=== PATIENT | female | born 1970 | race Caucasian/White ===

== ENCOUNTER 2024-03-22 07:24 | Emergency (ER) | payer OTHER, SELFPAY ==
--- NOTE | ~2024-03-22 | CT_ITS ---
EXAMINATION: CT ANGIOGRAM NECK CT ANGIOGRAM BRAIN CLINICAL INFORMATION: Acute onset dizziness. Neck pain. COMPARISON: None available. TECHNIQUE: Contiguous axial images from the thoracic inlet/aortic arch to the vertex bony calvarium, using 0.6 mm and 3 mm collimation following the IV contrast administration during the arterial phase. Total of 70 cc Omnipaque 350 contrast without reported complications. Sagittal and coronal reformatted images acquired. MIPS images The degree of stenosis determined by NASCET criteria. This CT examination was performed using dose optimization techniques as appropriate, variously including the following: *Automated exposure control *Adjustment of mA and/or kV according to patient size (this includes techniques or standardized protocols for targeted exams where dose is matched to indication/reason for exam; i.e. extremities or head) *Use of iterative reconstruction technique DLP: 1388 mGy-cm FINDINGS: CT angiogram neck: Aortic arch: Calcified plaques. No focal stenosis. No intimal flap. Right CCA: Tortuosity. No focal stenosis. No intimal flap. Right ICA: No focal stenosis. No intimal flap. Left CCA: No focal stenosis. No intimal flap. Left ICA: No focal stenosis. No intimal flap. Vertebral arteries: Left vertebral artery is dominant. Normal patency. No focal stenosis or intimal flap. CT angiogram brain: Anterior circulation: ICA: No focal stenosis. No intimal flap. Normal patency, bilaterally. MCA: No focal stenosis. No abrupt cut off. Normal patency, bilaterally. CONRADO: No focal stenosis. Note of contrast. Normal patency bilaterally. Ophthalmic arteries are patent. Posterior communicating arteries are patent, bilaterally. Left is robust. Posterior cerebral circulation: Right V4 segment with small caliber. Left vertebral artery is dominant. Posterior inferior cerebellar arteries, anterior inferior cerebellar arteries are patent. Basilar artery is patent without focal stenosis or intimal flap. Superior cerebellar arteries are patent. 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 Ancillary findings: Polyploid mucosal thickening, paranasal sinuses. CT/CT angio head neck IMPRESSION: No main cerebral artery occlusion or embolus. No gross aneurysm. Electronically signed by: Ferdinand Jay MD 03/22/2024 11:15 AM EDT
--- NOTE | ~2024-03-22 | CT_ITS ---
EXAMINATION: CT HEAD WITHOUT CONTRAST CLINICAL INFORMATION: dizziness, L ear pain, recent infection COMPARISON: None available. TECHNIQUE: Contiguous axial imaging was performed from the skull base to vertex without intravenous administration of contrast. This CT examination was performed using dose optimization techniques as appropriate, variously including the following: *Automated exposure control *Adjustment of mA and/or kV according to patient size (this includes techniques or standardized protocols for targeted exams where dose is matched to indication/reason for exam; i.e. extremities or head) *Use of iterative reconstruction technique DLP: 615 mGy-cm FINDINGS: No acute intracranial hemorrhage, mass effect, midline shift, hydrocephalus or herniation. Wray-white matter differentiation is normal. Posterior cranial fossa contents demonstrated no acute intracranial hemorrhage or mass effect. Few scattered patchy hypodensities in the deep periventricular white matter. Sellar/suprasellar region demonstrated no gross masses. Craniocervical junction is intact. Tympanic cavities and mastoid air cells are aerated. Polypoid mucosal thickening, left maxillary sinus. Increased density, left vertebral vascular system. CT/CT head/brain wo IV con IMPRESSION: No acute intracranial hemorrhage. Acute stroke/nonhemorrhagic ischemia cannot be excluded. If patient's symptoms persist recommend noncontrast MRI brain. Electronically signed by: Ferdinand Jay MD 03/22/2024 09:08 AM EDT
--- NOTE | ~2024-03-22 | XR_ITS ---
EXAMINATION: XR CHEST CLINICAL INFORMATION: Cough COMPARISON: None available. TECHNIQUE: Frontal view of the chest was obtained. FINDINGS: The lungs are adequately expanded. No focal consolidation. No pleural effusions or pneumothorax. The cardiomediastinal silhouette is within normal limits. No acute osseous abnormality. XR/XR chest 1V IMPRESSION: No acute pulmonary disease. Electronically signed by: Rohit Marcelino MD 03/22/2024 10:14 AM EDT
[2024-03-22 07:25] VITALS: BP 151/92; BP 184/100; PULSE 104; PULSE 79; RESP 18; TEMP 37.1; O2SAT 97; O2SAT 99; BMI 29.8
--- NOTE | 2024-03-22 07:26 | ECG_ITS ---
Test Reason : abd pain/vomiting Blood Pressure : / mmHG Vent. Rate : 086 BPM Atrial Rate : 086 BPM P-R Int : 134 ms QRS Dur : 066 ms QT Int : 386 ms P-R-T Axes : 049 023 044 degrees QTc Int : 461 ms Normal sinus rhythm Low voltage QRS Borderline ECG No previous ECGs available Referred By: Chloe Christian Electronically Signed By:Olaf Lomas
--- NOTE | 2024-03-22 07:27 | ED_ITS ---
HPI - Nausea/Vomiting/Diarrhea General Chief complaint: Nausea/Vomiting/Diarrhea Stated complaint: SUDDEN OSET N/V @ 5AM,HIGH BP 184/100 PER EMS Source: patient, EMS and old records reviewed Mode of arrival: EMS Limitations: no limitations History of Present Illness ED Provider: GILDA HPI Narrative: 53 yo female with PMH of bipolar, hearing loss and alcohol use disorder here with c/o waking up from sleep with the room spinning, n/v and her L face felt numb abruptly starting at 5am. She has been on amoxicillin since 03/15 for a L ear infection as well as cough she has been on amoxicillin she has a known L TM rupture. She denies drainage. She did wake up to use the bathroom at 1am and was fine but she woke up from sleep ill at 5am. Last known well was 1am. She denies abdominal pain, chest pain, dyspnea, diarrhea. She states she does not feel better. Her L face is tingling but she can feel it to the touch. MD elicited complaint: nausea and vomiting Onset (ago): hour(s) (5am today) Description of vomiting: watery Associated nausea: Yes Associated abdominal pain: No Location of pain: other (L ear area) Pain consistency: constant Severity: moderate Quality: aching Exacerbating factors: vomiting, movement and other (coughing) Relieving factors: none Context: other (recent AOM with TM rupture) Associated symptoms: loss of appetite, malaise, nausea/vomiting, weakness and other (dizziness, L facial tingling) Related Data Home Medications ?Medication ?Instructions ?Recorded ?Confirmed lamotrigine 200 mg tablet 200 mg PO DAILY 06/15/22 06/15/22 quetiapine 50 mg tablet (Seroquel) 50 mg PO BEDTIME 06/15/22 06/15/22 Previous Rx's ?Medication ?Instructions ?Recorded chlordiazepoxide HCl 25 mg capsule 25 mg PO Q2H PRN anxiety 12 doses 03/22/24 #12 caps ondansetron 4 mg disintegrating 4 mg PO Q8H PRN nausea and 03/22/24 tablet vomiting #20 tabs Allergies Allergy/AdvReac Type Severity Reaction Status Date / Time naproxen Allergy Unknown unknown Verified 03/22/24 07:35 pineapple Allergy Unknown Unknown Verified 06/15/22 09:26 zoloft Allergy Unknown hives Uncoded 06/15/22 09:26 Review of Systems 2 Review of Systems: Constitutional : No Fever, No Chills, No Fatigue ENT/Mouth : No sore throat, No Rhinorrhea, pos ear pain Eyes: No Eye Pain, No Swelling, No Redness Cardiovascular : No Chest Pain, No SOB, No Dyspnea on Exertion Respiratory : No Cough, No Sputum Gastrointestinal : pos Nausea, pos Vomiting, No Diarrhea, No abdominal Pain Genitourinary : No Dysuria, No Urinary Frequency, No Hematuria, Musculoskeletal : No joint pain, No Myalgias, No Joint Swelling Skin : No Skin Lesions, No rash Neuro : No Weakness, No Numbness, pos Dizziness, positive Headache Psych : No Anxiety/Panic, No Depression All other systems reviewed and are negative Gastrointestinal: Gastrointestinal: Reports nausea PMFSH Past Medical History Attestation statement: The following information was validated with the patient. Source: old records reviewed Medical History History of alcohol abuse Bipolar 1 disorder Surgical History Hx of tubal ligation Hx of colonoscopy Hx of shoulder surgery History of carpal tunnel release Hx of bladder repair surgery Family History Family History (Updated 06/15/22 @ 09:28 by Syed Stringer LPN) Mother Diabetes Asthma Arthritis Father Alcohol abuse Liver disease Social History Social History Smoked in Last 30 Days: Yes Use of substances other than those prescribed or required for medical reasons: No Advance Directives: No Advance Directives Information Provided: Yes Physical Exam 2 Vital Signs: Vital Signs: Last Vital Signs Temp 97.9 F 03/22/24 12:07 Pulse 88 03/22/24 12:07 Resp 16 03/22/24 12:07 BP 162/71 H 03/22/24 12:07 Pulse Ox 99 03/22/24 12:07 O2 Del Method Room Air 03/22/24 12:07 BMI result Body Mass Index 29.8 Appearance: Alert. Oriented X3. No acute distress. Eyes: Pupils equal, round and reactive to light. ENT: Pharynx normal. L TM no effusion but small perforation noted, L mastoid ttp no swelling Neck: Normal inspection. Neck supple. CVS: Normal heart rate and rhythm. Pulses normal. Respiratory: No respiratory distress. Breath sounds normal. Abdomen: Soft and nontender. Skin: Skin warm and clammy. pale skin color. Normal skin turgor. Extremities: No lower extremity edema. No calf ttp Neuro: Oriented X 3. No motor deficit. No sensory deficit. CN2-12intact has no nystagmus no drift, she has tongue fasciculation and bilateral hand tremors, can feel light touch to face with both hands and symmetric Course Course Course Narrative: LFTS no abdominal pain suspect ETOH use Reevaluation(s) Reevaluation #1: steady gait no ataxia Medications Administered Discontinued Medications Generic Name Dose Route Start Last Admin Trade Name Freq PRN Reason Stop Dose Admin Magnesium Sulfate 2 gm in 50 mls @ 25 mls/hr 03/22/24 08:07 03/22/24 11:13 Magnesium Sulfate/H2o IV 03/22/24 10:06 Infused ONCE ONE Infusion Iohexol 100 ml 03/22/24 09:59 03/22/24 09:59 Iohexol 350 Mg/Ml 100 Ml Infus..Btl IV 03/22/24 10:00 70 ml ONCE ONE Administration Lorazepam 1 mg 03/22/24 07:38 03/22/24 07:50 Lorazepam 2 Mg/Ml Vial IVPUSH 03/22/24 07:39 1 mg STAT STA Administration Lorazepam 1 mg 03/22/24 11:24 03/22/24 11:33 Lorazepam 1 Mg Tablet PO 03/22/24 11:25 1 mg ONCE ONE Administration Ondansetron HCl 4 mg 03/22/24 07:38 03/22/24 07:50 Ondansetron Hcl 4 Mg/2 Ml Vial IVPUSH 03/22/24 07:39 4 mg ONCE ONE Administration Medical Decision Making Medical Decision Making [facility] Narrative: 53 yo female with PMH of bipolar, hearing loss and alcohol use disorder here with c/o last known well 1am then woke up with symptoms of dizziness, L facial tingling, L ear pain and n/v at 5am after recent URI and L AOM with TM perforation. At this time will obtain basic labs, EKG, start on zofran and ativan. CT head for mastoiditis. She has no focal deficits on exam and she is intact. I am concerned she might be impending bells palsy from infection or mastoiditis - CT scan ordered. Her symptoms are also concerning for ETOH withdrawal. Differential Diagnosis Differential Diagnoses: The differential diagnosis associated with the presentation includes mastoiditis, vertigo, facial nerve palsy developing, lyte abnormality, ETOH withdrawal Admission/Observation Consideration of admission/observation: Escalation of care including admission/observation considered CTA negative, CT head negative has no neuro deficits and symptoms resolved with IV ativan I did offer addiction medicine consult but she declines and states that she didn't drink although I explained level was 15 at this time she is eating and drinking and able to ambulate without issue Lab Data MDM Lab Attestation statement: I reviewed the patient's lab results. 03/22/24 07:41 03/22/24 07:41 Labs: Lab Results 03/22/24 03/22/24 03/22/24 Range/Units 07:41 07:54 08:41 WBC 8.9 (4.8-10.8) X10*3/uL RBC 4.49 (4.20-5.50) X10*6/uL Hgb 14.3 (12.0-16.0) g/dl Hct 41.2 (37.0-47.0) % MCV 91.8 (80.0-98.0) fL MCH 31.8 (27.0-33.0) pg MCHC 34.7 (31.0-35.0) g/dl RDW 13.4 (11.0-16.0) % Plt Count 247 (160-400) X10*3/uL MPV 10.2 (9.4-12.3) fL Immature Gran % (Auto) 1.1 H (0.0-0.4) % Neut % (Auto) 66.8 (45-73) % Lymph % (Auto) 24.3 (20-40) % Ida % (Auto) 5.4 (2-11) % Eos % (Auto) 1.8 (0-4) % Baso % (Auto) 0.6 (0-2) % Lymph # (Auto) 2.2 (1.2-4.9) X10*3/uL Ida # (Auto) 0.5 (0.1-1.2) X10*3/uL Eos # (Auto) 0.2 (0.0-0.4) X10*3/uL Baso # (Auto) 0.1 (0.0-0.2) X10*3/uL Abs Immat Gran (auto) 0.10 H (0.00-0.03) X10*3/uL Absolute Neuts (auto) 6.0 (2.0-8.3) x10*3/uL Absolute Nucleated RBC 0.000 (0.0-0.012) X10*3/uL Nucleated RBC % (auto) 0.0 (0.0-0.2) /100WBC Sodium 144 (135-145) mmol/L Potassium 3.8 (3.3-5.1) mmol/L Chloride 106 (96-108) mmol/L Carbon Dioxide 22 (22-29) mmol/L Anion Gap 20 (12-20) BUN 11 (9-16) mg/dL Creatinine 0.84 (0.5-1.4) mg/dL Estim Creat Clear Calc 79.6 Estimated GFR > 60 Random Glucose 123 H (60-115) mg/dL Calcium 9.3 (8.4-10.2) mg/dL Magnesium 1.6 (1.6-2.6) mg/dL Total Bilirubin 0.5 (0.0-1.0) mg/dL Direct Bilirubin 0.2 (0.0-0.5) mg/dL AST 93 H (5-31) U/L ALT 57 H (0-31) U/L Alkaline Phosphatase 83 (39-117) U/L Troponin I High Sens 4.6 (<3.5-17.0) ng/L Total Protein 7.4 (6.5-8.0) g/dL Albumin 4.4 (3.5-5.0) g/dL Lipase 19 (8-78) U/L Urine Color Dark Yellow Urine Appearance Clear Urine pH 5.5 (5.0-9.0) Ur Specific [place] >= 1.030 H (1.005-1.025) Urine Protein 30 (1+) H (Neg-Trace) mg/dL Urine Glucose (UA) Negative (Negative) mg/dL Urine Ketones 40 (Negative) mg/dL Urine Blood Negative (Negative) Urine Nitrite Negative (Negative) Ur Leukocyte Esterase Small (1+) H (Negative) Urine RBC 0-2 (0-2) /HPF Urine WBC 0-5 (0-5) /HPF Ur Squamous Epith Cells 3-5 (0-2) /HPF Urine Bacteria None Seen (None Seen) Hyaline Casts 0-2 (0-2) /LPF Urine Opiates Screen Not Detected (Not Detect) Ur Buprenorphine Scrn Not Detected (Not Detect) ng/mL Ur Oxycodone Screen Not Detected (Not Detect) ng/mL Urine Methadone Screen Not Detected (Not Detect) ng/mL Urine Fentanyl Screen Not Detected (Not Detect) Ur Barbiturates Screen Not Detected (Not Detect) Ur Phencyclidine Scrn Not Detected (Not Detect) Ur Amphetamines Screen Not Detected (Not Detect) U Benzodiazepines Scrn Not Detected (Not Detect) Urine Cocaine Screen Not Detected (Not Detect) U Marijuana (THC) Screen Not Detected (Not Detect) Ethyl Alcohol 15 mg/dL Influenza Type A (PCR) NEGATIVE (Negative) Influenza Type B (PCR) NEGATIVE (Negative) RSV RNA Qual (PCR) NEGATIVE (Negative) SARS-CoV-2 RNA (RT-PCR) NEGATIVE (Negative) Independent Interpretation I performed an independent interpretation of an: EKG, Plain X-Ray (normal ) and CT Scan (no acute findings, normal mastoid) Interpretation: Rate: 86 Rhythm: NSR [place]: normal Normal P waves. Normal ISAÍAS. Normal QRS complex. ST T wave : normal no DORENE, flat t waves anterior leads qTC: 461 prior studies: no acute ischemia The study has been interpreted contemporaneously by me. . Radiology Impression Discussion of test interpretation with radiology: I have reviewed the radiologist's reading. Independent Historian Clinical information obtained from an independent historian. History obtained from or confirmed by: EMS External Record Review External record reviewed: Outpatient record Prescription Management I considered prescription management with: Other (PO librium) Critical Care Time Critical Care Time Critical Care Time: Yes Total Critical Care Time: 35 Attestation: IV ativan for supportive care, repeat assessments, management of suspect ETOH withdrawal I attest to this time spent taking care of the patient Discharge Plan Discharge Clinical Impression: Dizziness, Acute nausea with nonbilious vomiting, Eardrum rupture, left Patient Disposition: Home, Self-Care Instructions: Ruptured Eardrum (ED), Acute Nausea and Vomiting (ED), Dizziness (ED) Additional Instructions: labs reassuring other than mild bump in liver enzymes can repeat with doctor next week CT head and CTA of neck normal vessels no signs of infection negative for flu, covid, rsv you will be given medications to help with symptoms please avoid any water in the ear with rupture avoid water in the ear with shower - either get ear plug or use vaseline on cotton ball - follow up with ENT as planned return for any worsening symptoms or concerns. Prescriptions: New ondansetron 4 mg tablet,disintegrating 4 mg PO Q8H PRN (Reason: nausea and vomiting) Qty: 20 0RF chlordiazepoxide HCl 25 mg capsule 25 mg PO Q2H PRN (Reason: anxiety) Qty: 12 0RF Rx Instructions: until symptoms controlled No Action lamotrigine 200 mg tablet 200 mg PO DAILY quetiapine [Seroquel] 50 mg tablet 50 mg PO BEDTIME Referrals: [facility] [Provider Group] Stand Alone Forms: Work/School Release Interventions: ED Discharge Assessment Last Done: 03/22/24 12:07 Discharge Date/Time: 03/22/24 12:08 Print Language: Albanian
[2024-03-22 07:45] LABS: MANUAL DIFF FLAG NO
[2024-03-22 07:49] VITALS: BP 133/100; PULSE 90; RESP 20; O2SAT 98
[2024-03-22] MEDS: LORazepam 2 MG/ML VIAL 1 MG IVPUSH (07:50)
[2024-03-22] MEDS: ondansetron HCL 4 MG/2 ML VIAL IVPUSH (07:50)
[2024-03-22 07:51] LABS: Basophils Absolute Auto 0.1 X10*3/uL (0.0-0.2); Basophils Percent Auto 0.6 % (0-2); Eosinophils Absolute Auto 0.2 X10*3/uL (0.0-0.4); Eosinophils Percent Auto 1.8 % (0-4); Hematocrit 41.2 % (37.0-47.0); Hemoglobin 14.3 g/dl (12.0-16.0); Imm Gran Pct Auto 1.1 % (0.0-0.4); Lymphocytes Absolute Auto 2.2 X10*3/uL (1.2-4.9); Lymphocytes Percent Auto 24.3 % (20-40); Mean Corpuscular HGB Conc 34.7 g/dl (31.0-35.0); Mean Corpuscular Hemoglobin 31.8 pg (27.0-33.0); Mean Corpuscular Volume 91.8 fL (80.0-98.0); Mean Platelet Volume 10.2 fL (9.4-12.3); Monocytes Absolute Auto 0.5 X10*3/uL (0.1-1.2); Monocytes Percent Auto 5.4 % (2-11); Neutrophils Percent Auto 66.8 % (45-73); Platelet Count 247 X10*3/uL (160-400); Red Blood Count 4.49 X10*6/uL (4.20-5.50); Red Cell Distribution Width 13.4 % (11.0-16.0); White Blood Count 8.9 X10*3/uL (4.8-10.8)
[2024-03-22 07:59] LABS: Ethanol 15 mg/dL
[2024-03-22 08:01] LABS: Alanine Aminotransferase 57 U/L (0-31); Albumin Level 4.4 g/dL (3.5-5.0); Alkaline Phosphatase 83 U/L (39-117); Anion Gap 20 (12-20); Aspartate Amino Transferase 93 U/L (5-31); Bilirubin Direct 0.2 mg/dL (0.0-0.5); Bilirubin Total 0.5 mg/dL (0.0-1.0); Blood Urea Nitrogen 11 mg/dL (9-16); Calcium 9.3 mg/dL (8.4-10.2); Carbon Dioxide 22 mmol/L (22-29); Chloride 106 mmol/L (96-108); Creatinine Clr Calc Pharmacy 79.6; Estimated Glomerular Filt Rate > 60; Glucose Random 123 mg/dL (60-115); Lipase 19 U/L (8-78); Magnesium 1.6 mg/dL (1.6-2.6); Potassium 3.8 mmol/L (3.3-5.1); Sodium 144 mmol/L (135-145); Total Protein 7.4 g/dL (6.5-8.0)
[2024-03-22 08:08] LABS: Troponin-I High Sensitivity 4.6 ng/L (<3.5-17.0)
--- NOTE | 2024-03-22 08:17 | PC.NURSE ---
Pt presents to ED via EMS from home, reports N/V since approx 5 AM this morning she woke up. Pt also reports tremors and general malaise. Cough and sore throat for past couple of days, reports david/white phlegm. Reports she has been taking amoxicillin since 03/15 for left ear infection with ruptured ear drum. Alert and oriented, breathing even and unlabored, skin slightly pale and clammy. Noted to have multiple episodes of dry heaving. Tremors bilat arms, reports alcohol use frequently but not daily, no hx of withdrawals. 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
[2024-03-22 08:35] LABS: Influenza A PCR NEGATIVE (Negative); Influenza B PCR NEGATIVE (Negative); Resp Syncy Virus RNA Qual PCR NEGATIVE (Negative); SARS COV2 PCR INHOUSE NEGATIVE (Negative)
[2024-03-22 08:48] LABS: Appearance Urine Clear; Color Urine Dark Yellow; Glucose Urine UA Negative (Negative); Leukocyte Esterase Urine Small (1+) (Negative); Nitrite Urine Negative (Negative); PH 5.5 (5.0-9.0); Specific Gravity - Urine >= 1.030 (1.005-1.025); UMIC TRIGGER UACC YES; Urine Blood Negative (Negative); Urine Ketones 40 mg/dL (Negative); Urine Protein 30 (1+) mg/dL (Neg-Trace)
[2024-03-22] MEDS: Magnesium Sulfate/H2O 2 GM/50 ML PIGGYBACK IV (08:51)
[2024-03-22 08:57] LABS: Amphetamine Screen Urine Not Detected (Not Detect); Barbiturates, Urine Not Detected (Not Detect); Benzodiazepines Screen Urine Not Detected (Not Detect); Buprenorphine Scr Not Detected (Not Detect); Cannabinoid Screen Urine Not Detected (Not Detect); Cocaine Screen Urine Not Detected (Not Detect); Fentanyl, urine Not Detected (Not Detect); Methadone Screen, Urine Not Detected (Not Detect); Opiate Screen Urine Not Detected (Not Detect); Oxycodone Screen Urine Not Detected (Not Detect); Phencyclidine Screen Urine Not Detected (Not Detect)
[2024-03-22 09:01] LABS: Bacteria Urine None Seen (None Seen); Hyaline Casts Urine 0-2 /LPF (0-2); RBC Urine 0-2 /HPF (0-2); UACC Culture Trigger YES; WBC Urine 0-5 /HPF (0-5)
[2024-03-22] MEDS: iohexoL 350 MG/ML 100 ML INFUS..BTL IV (09:59)
[2024-03-22 10:05] VITALS: BP 126/90; PULSE 94; RESP 18; TEMP 36.8; O2SAT 99
[2024-03-22] MEDS: LORazepam 1 MG TABLET PO (11:33)
[2024-03-22 12:07] VITALS: BP 162/71; PULSE 88; RESP 16; TEMP 36.6; O2SAT 99
== END 2024-03-22 12:08 | disposition home or self-care (01) ==
PROVIDERS: Emergency Provider Emergency Medicine; PCP Internal Medicine
DX: H72.92 Unspecified perforation of tympanic membrane, left ear (principal); R11.2 Nausea with vomiting, unspecified; R42 Dizziness and giddiness; R94.31 Abnormal electrocardiogram [ECG] [EKG]; H92.02 Otalgia, left ear; Z03.818 Encounter for observation for suspected exposure to other biological agents ruled out; Z79.899 Other long term (current) drug therapy; Z51.81 Encounter for therapeutic drug level monitoring
CPT/HCPCS: 0241U; 36415; 70450; 70496; 70498; 71045; 80048; 80076; 80307; 81001; 83690; 83735; 84484; 85025; 87086; 93005; 96365; 96366; 96375; 99285; J2060; J2405; J3475; Q9967

== ENCOUNTER → 2024-03-22 07:26 | Outpatient (BNV) | payer OTHER, SELFPAY | PROVIDERS: Emergency Provider Emergency Medicine; PCP Internal Medicine; Visit Provider Internal Medicine Cardiovascular Disease | DX: R10.9 Unspecified abdominal pain (principal) | CPT/HCPCS: 93010 ==

== ENCOUNTER → 2024-03-22 07:38 | Outpatient (BNV) | payer OTHER, SELFPAY | PROVIDERS: Emergency Provider Emergency Medicine; PCP Internal Medicine; Visit Provider Radiology Diagnostic Radiology | DX: R42 Dizziness and giddiness (principal) | CPT/HCPCS: 70450 ==